=== PATIENT | male | born 1965 | race Caucasian/White ===

== ENCOUNTER → 2018-11-12 | Outpatient (CLI) | payer BC ==
--- NOTE | 2018-11-13 03:25 | REP ---
Clinical: Radiculopathy with left-sided back pain. Technique: AP, lateral, bilateral oblique and coned-down views of the lumbosacral spine. Findings: No acute fracture / compression injury. Alignment and lordosis maintained. Moderate multilevel degenerative changes include endplate sclerosis, marginal early osteophytosis, minimal disc space narrowing and hypertrophic facet changes. Findings are most pronounced at the L5-S1. Chronic spondylolysis cannot be excluded. Impression: Moderate multilevel degenerative changes most pronounced at L5-S1. Chronic spondylolysis at L5 without spondylolisthesis cannot be excluded. Electronically Signed by Orlando Ortiz MD 11/13/2018 03:17 A
== END ==
LOC: M WUC 11:21
PROVIDERS: ATTEND Internal Medicine
DX: M54.16 Radiculopathy, lumbar region (principal)

== ENCOUNTER → 2022-06-11 | Outpatient (CLI) | payer BC ==
[2022-06-11 15:54] LABS: ALT/SGPT 42 U/L (12-78); BILIRUBIN,TOTAL 1.1 MG/DL (0.2-1.0); BLOOD UREA NITROGEN 17 MG/DL (7-18); CALCIUM LEVEL 9.4 MG/DL (8.5-10.1); CARBON DIOXIDE LEVEL 25 MEQ/L (21-32); CHLORIDE LEVEL 106 MEQ/L (98-107); CHOLESTEROL LEVEL 178 MG/DL (<200); CHOLESTEROL RISK RATIO 2.507 (<5); CREATININE FOR GFR 1.05 MG/DL (0.70-1.30); GLOMERULAR FILTRATION RATE > 60.0 (>56); GLUCOSE, FASTING 97 MG/DL (70-100); HDL CHOLESTEROL 71 MG/DL (>40); LDL CHOLESTEROL 95 MG/DL (<100); NON-HDL-C 107 MG/DL; POTASSIUM SERUM 4.2 MEQ/L (3.5-5.1); PROSTATIC SPECIFIC AG MONITOR 0.71 NG/ML (< 4.00); SODIUM LEVEL 137 MEQ/L (136-145); TOTAL PROTEIN 7.1 GM/DL (6.4-8.2); TRIGLYCERIDES LEVEL 60 MG/DL (<150)
== END ==
LOC: M WUC 09:48
PROVIDERS: ATTEND Internal Medicine
DX: R73.01 Impaired fasting glucose (principal); N40.1 Benign prostatic hyperplasia with lower urinary tract symptoms

== ENCOUNTER → 2023-09-18 | Outpatient (CLI) | payer BC | LOC: M PLAIMG 10:26 | PROVIDERS: ATTEND Orthopaedic Surgery | DX: M75.51 Bursitis of right shoulder (principal) ==

== ENCOUNTER → 2024-08-18 | Outpatient (CLI) | payer BC ==
[~2024-08-18] MED LIST: ISOVUE-370 76% 100ML VIAL As Ordered ONE
== END ==
LOC: M RAD 13:01
PROVIDERS: ATTEND Internal Medicine
DX: K57.90 Diverticulosis of intestine, part unspecified, without perforation or abscess without bleeding (principal)

== ENCOUNTER → 2024-09-29 | Outpatient (CLI) | payer BC ==
[~2024-09-29] MED LIST changes: -ISOVUE-370 76% 100ML VIAL As Ordered ONE; +LIDOCAINE 1% MDV 20ML VIAL As Ordered ONE
[2024-09-29 13:30] VITALS: TEMP 98.2
[2024-09-29 14:00] VITALS: BP 158/76; O2SAT 100
== END ==
LOC: M IRPRO 13:02
PROVIDERS: ATTEND Internal Medicine Medical Oncology
DX: R59.0 Localized enlarged lymph nodes (principal); C83.35 Diffuse large B-cell lymphoma, lymph nodes of inguinal region and lower limb

== ENCOUNTER → 2024-10-27 | Outpatient (CLI) | payer BC | LOC: M PLARAD 08:15 | PROVIDERS: ATTEND Internal Medicine Medical Oncology | DX: C82.98 Follicular lymphoma, unspecified, lymph nodes of multiple sites (principal) | CPT/HCPCS: 78815; A9552 ==

== ENCOUNTER 2024-12-17 07:32 | Day surgery (SDC) | payer BC ==
[~2024-12-17] VITALS: Ht 180.3 cm; Wt 72.5 kg
[~2024-12-17 07:32] MED LIST changes: +FAMO40TA3 PO; -LIDOCAINE 1% MDV 20ML VIAL As Ordered ONE; +LIDOCAINE 2% 100MG/5ML SDV (FOR ANES.) As Ordered ONE; +SERTRALINE; +TAMS1CAP17 PO; +ZOLO100T PO; +dexmedeTOMIDine (4MCG/ML)200MCG/50ML BTL (PRECEDEX) As Ordered ONE; +propofoL 200 MG/20 ML VIAL As Ordered ONE
[2024-12-17 08:54] VITALS: TEMP 98.2
[2024-12-17 09:18] VITALS: BP 117/56; O2SAT 98
== END 2024-12-17 09:30 | disposition home or self-care (01) ==
LOC: M OPP 07:32
PROVIDERS: ATTEND Surgery
DX: K64.2 Third degree hemorrhoids (principal); R10.84 Generalized abdominal pain; Z79.899 Other long term (current) drug therapy